=== PATIENT | female | born 1980 | race Caucasian/White ===

== ENCOUNTER 2016-08-20 11:39 | Emergency (ER) | payer OTHER ==
[~2016-08-20 11:39] MED LIST: ALBUTEROL17 GM INH; AMOXICILLIN PO; ATIVAN PO; BACTRIM DS TABL1 TA1 PO; CLARITIN D PO; CORTISPORIN-TC10 M1 OT; DICLOFENAC PO; IBUPROFEN800 MG PO; NO MEDICATIONS; PHENERGAN DM1 ML PO; PREDNISONE PO; PREDNISONE10 MG/DOSE PO; PSORIASIS PO; ULTRAM PO; VIBRAMYCIN100 M1 PO; XANAX2 MG PO; ZYRTEC PO
== END 2016-08-20 13:25 | disposition home or self-care (01) ==
LOC: CED 11:39
DX: O9A.211 Injury, poisoning and certain other consequences of external causes complicating pregnancy, first trimester (principal); O99.351 Diseases of the nervous system complicating pregnancy, first trimester; T40.1X1A Poisoning by heroin, accidental (unintentional), initial encounter; G40.909 Epilepsy, unspecified, not intractable, without status epilepticus; Z88.5 Allergy status to narcotic agent
CPT/HCPCS: 99282; 99283

== ENCOUNTER 2016-10-25 00:19 | Emergency (ER) | payer SELFPAY | END 2016-10-25 03:13 | disposition home or self-care (01) | LOC: CED 00:19 → CFTX 00:19 | DX: L02.31 Cutaneous abscess of buttock (principal); G40.909 Epilepsy, unspecified, not intractable, without status epilepticus; F41.9 Anxiety disorder, unspecified; F32.9 Major depressive disorder, single episode, unspecified; Z88.5 Allergy status to narcotic agent | CPT/HCPCS: 10060; 87070; 87077; 87186; 87205; 99283 ==